=== PATIENT | male | born 1995 ===

== ENCOUNTER 2018-07-15 17:09 | Emergency (ER) | payer SELFPAY ==
[~2018-07-15] VITALS: Ht 180.3 cm; Wt 72.6 kg
--- NOTE | 2018-07-15 18:39 | ED Fall/Injury ---
General Chief Complaint: Trauma-Non Activation Stated Complaint: FELL/BUCKED OFF OF HORSE YESTERDAY Nursing Triage Note: Pt reports being at [facility] yesterday when bucked off a bareback horse. Pt fell on L hip and felt a pinch in hip. Pt also c/o R neck, shoulder and wrist pain. Obvious swelling to R hand. Pt reports alternating tylenol and ibu with no relief. Last pain meds taken at 1630. Pt denies LOC, unsure if hit head. Source: patient Exam Limitations: no limitations History of Present Illness Date Seen by Provider: Jul 15, 2018 Time Seen by Provider: 18:38 Initial Comments To ER per private vehicle with reports of being bucked off a horse yesterday. Needed on his right side. He has pain to the right side of his neck, pain in the right shoulder, pain and swelling to the right hand, left hip pain. He has been ambulatory since the fall. Denies loss of consciousness. Occurred: yesterday Severity: moderate Injuries/Pain Location: neck, upper extremity Associated Symptoms (Fall): Neck Pain Allergies and Home Medications Patient Home Medication List Home Medication List Reviewed: Yes Review of Systems Review of Systems Constitutional: see HPI Eyes: No Symptoms Reported Ears, Nose, Mouth, Throat: no symptoms reported Respiratory: no symptoms reported Cardiovascular: no symptoms reported Genitourinary: no symptoms reported Musculoskeletal: see HPI, neck pain Skin: no symptoms reported Psychiatric/Neurological: No Symptoms Reported Past Eukqisb-Uvabxi-Hjhlxn Hx Patient Social History Recent Foreign Travel: No Contact w/Someone Who Travel: No Recent Infectious Disease Expo: No Physical Exam Vital Signs Vital Signs - First Documented 07/15/18 17:53 Temp 98.5 Pulse 73 Resp 11 B/P (MAP) 116/63 (80) Pulse Ox 99 O2 Delivery Room Air Capillary Refill : Less Than 3 Seconds Height, Weight, BMI Height: 5'11.00" Weight: 160lbs. oz. [id number]; BMI Method:Stated General Appearance: WD/WN, no apparent distress HEENT: PERRL/EOMI, normal ENT inspection, TMs normal Neck: non-tender, full range of motion, tender lateral Cardiovascular: regular rate, rhythm, no murmur Respiratory: chest non-tender, lungs clear, normal breath sounds, no respiratory distress, no accessory muscle use Gastrointestinal: normal bowel sounds, non tender, soft Extremities: normal range of motion, non-tender Neurologic/Psychiatric: alert, normal mood/affect, oriented x 3 Skin: normal color, warm/dry Aiden Coma Score Best Eye Response: (4) Open Spontaneously Best Verbal Response: (5) Oriented Best Motor Response: (6) Obeys Commands Aiden Total: 15 Progress/Results/Core Measures Results/Orders My Orders Orders - DI ACOSTA APRN Ct Head/Cervical Spine Wo (07/15/18 18:36) Pelvis With Left Hip 2-3 Views (07/15/18 18:36) Shoulder, Right, 3 Views (07/15/18 18:36) Hand, Right, 3 Views (07/15/18 18:36) Cervical Collar (07/15/18 18:40) Vital Signs/I&O 07/15/18 17:53 Temp 98.5 Pulse 73 Resp 11 B/P (MAP) 116/63 (80) Pulse Ox 99 O2 Delivery Room Air Blood Pressure Mean: 80 Departure Impression Primary Impression: Muscle strain Additional Impression: Contusion Disposition: 01 HOME, SELF-CARE Condition: Stable Departure-Patient Inst. Decision time for Depature: 20:34 Referrals: NO,LOCAL PHYSICIAN (PCP/Family) Primary Care Physician Patient Instructions: Cervical Muscle Strain, Contusion (DC) Add. Discharge Instructions: All discharge instructions reviewed with patient and/or family. Voiced understanding. DI ACOSTA APRN Jul 15, 2018 18:39
--- NOTE | 2018-07-15 20:17 | Diagnostic Imaging Report ---
PROCEDURE: CT head and CT cervical spine without contrast. TECHNIQUE: Multiple contiguous axial images were obtained through the brain and cervical spine without the use of intravenous contrast. Sagittal and coronal reformations through the cervical spine were then performed. INDICATION: Pain, bucked off Broncho. COMPARISON: None available. FINDINGS: No intracranial hemorrhage. No intracranial mass, mass effect, midline shift, herniation hydrocephalus, or extra-axial fluid collection. No CT evidence of an acute ischemic infarction. The orbits are unremarkable. The paranasal sinuses are clear. The calvarium and extracalvarial soft tissues are unremarkable. Very minimal apex left curvature of the cervical spine, likely not clinically significant. No significant anterolisthesis or retrolisthesis. Alignment of the atlanto-occipital joint is well maintained. Vertebral body heights and disc spaces are well-maintained. No acute fracture or dislocation. No destructive osseous process. No high-grade osseous central canal or neuroforaminal stenosis. The paraspinal soft tissues are unremarkable. IMPRESSION: No acute intracranial abnormality. No acute osseous abnormality of the cervical spine. Dictated by: Dictated on workstation # [id number]
--- NOTE | 2018-07-15 20:40 | Diagnostic Imaging Report ---
INDICATION: Fall. Shoulder pain. COMPARISON: None. FINDINGS: 3 views of the right shoulder were obtained. There is no fracture, dislocation, or other acute bony abnormality identified. The soft tissues appear unremarkable. No radiopaque foreign bodies identified. The visualized portions of the right lung are clear. IMPRESSION: No acute fractures or dislocations of the right shoulder. Dictated by: Dictated on workstation # [id number]
[2018-07-15 20:52] VITALS: BP 116/63
--- NOTE | 2018-07-15 20:57 | Diagnostic Imaging Report ---
INDICATION: Pain, fell off horse. COMPARISON: None available TECHNIQUE: 3 radiographs of the pelvis and left hip dated 07/15/2018. FINDINGS: No acute fracture or dislocation. No destructive osseous process. Sacroiliac joints and pubic symphysis are intact. The left femoral head maintains its normal shape and contour. IMPRESSION: No acute osseous abnormality. Dictated by: Dictated on workstation # [id number]
--- NOTE | 2018-07-15 21:00 | Diagnostic Imaging Report ---
INDICATION: Fell off horse, pain. COMPARISON: None available. TECHNIQUE: 3 radiographs of the right hand dated 07/15/2018. FINDINGS: No acute fracture or dislocation. No destructive osseous process. Carpal alignment is well-maintained. No suspicious radiopaque foreign body. IMPRESSION: No acute osseous abnormality. Dictated by: Dictated on workstation # [id number]
== END 2018-07-15 20:52 | disposition home or self-care (01) ==
LOC: ER 17:11
DX: S16.1XXA Strain of muscle, fascia and tendon at neck level, initial encounter (principal); S46.911A Strain of unspecified muscle, fascia and tendon at shoulder and upper arm level, right arm, initial encounter; S66.911A Strain of unspecified muscle, fascia and tendon at wrist and hand level, right hand, initial encounter; S76.011A Strain of muscle, fascia and tendon of right hip, initial encounter; R40.2142 Coma scale, eyes open, spontaneous, at arrival to emergency department; R40.2252 Coma scale, best verbal response, oriented, at arrival to emergency department; R40.2362 Coma scale, best motor response, obeys commands, at arrival to emergency department; V80.010A Animal-rider injured by fall from or being thrown from horse in noncollision accident, initial encounter
CPT/HCPCS: 70450; 72125; 73030; 73130